=== PATIENT | male | born 1930 | race Caucasian/White ===

== ENCOUNTER 2018-12-14 12:25 | Emergency (ER) | payer MEDICARE, OTHER ==
--- NOTE | 2018-12-14 13:50 | Diagnostic Imaging Report ---
KRISTI HAWKINS [facility] [address] [facility] [address] [place], [place]. [address] Report Submission Date: Dec 14, 2018 1:32:53 PM CDT Patient Study Name: RICHARD PADGETT Date: Dec 14, 2018 1:06:28 PM CDT Modality Type: CT\SR Gender: M Description: CT BRAIN W/O CONTRAST : [birth year] Institution: [facility] Physician: KRISTI HAWKINS CT brain without IV contrast Clinical history: History of fall No visible skull fractures. Mastoid air cells and visible sinuses are clear. Moderate cortical atrophy. No bleeding or acute intracranial abnormalities. No midline shift or hydrocephalus. No visible tumor mass. Impression: Moderate cortical atrophy. No bleeding or acute intracranial abnormalities. Electronically signed on Dec 14, 2018 1:32:53 PM CDT by: John PERALTA
[2018-12-14 14:11] VITALS: BP 132/80
--- NOTE | 2018-12-14 19:16 | ED Physician Documentation ---
Fall - HISTORIAN Historian: patient, spouse, child - HPI Stated Complaint: fall coming out of bathroom Chief Complaint: Fall Additional Information: pt amb [place] when fell w/ lac lt eyebrow and bridge nose Onset: just prior to arrival Where: home Context: lost balance r: mild Associated Symptoms:: no loss of consciousness (unsure snrse reported finding him back in room) Location of Pain/Injury: face Injury to Right Extremity: none Injury to Left Extremity: none - ROS CONST: no problems NEURO: denies: dizziness, anxiety, depression MS/SKIN/LYMPH: denies: weakness, numbness, neck pain, back pain, ankle swelling EYES/ENT: denies: problems with vision CVS/RESP: none - PAST HX Past History: other (CHF DEMENTIA GERD) Allergies/Adverse Reactions: Allergies Allergy/AdvReac Type Severity Reaction Status Date / Time No Known Allergies Allergy Verified 12/14/18 12:44 Home Medications: Ambulatory Orders Medication Instructions Recorded Carvedilol [Coreg] 3.125 mg PO BS 12/14/18 Omeprazole 40 mg PO DAILY 12/14/18 Polyethylene Glycol 3350 [Miralax] 17 gm PO 1100 12/14/18 QUEtiapine FUMARATE [Seroquel] 0.5 tab PO DAILY 12/14/18 Quetiapine Fumarate [Seroquel] 50 mg PO HS 12/14/18 Warfarin Sodium 2 mg PO DAILY 12/14/18 Warfarin Sodium [Coumadin] 2.5 mg PO TUTH18 12/14/18 - SOCIAL HX Smoking History: non-smoker Alcohol Use: none Drug Use: none - FAMILY HX Family History: no significant history - VITAL SIGNS Vital Signs: Vital Signs Temp Pulse Resp BP Pulse Ox 97.0 F L 82 19 132/80 78 L 12/14/18 14:06 12/14/18 14:06 12/14/18 14:06 12/14/18 14:06 12/14/18 14:06 - REVIEWED ASSESSMENTS Nursing Assessment Reviewed: Yes Vitals Reviewed: Yes Procedures Wound Location: face Wound Length: 1.5 CM LAC TO INNER LT EYEBROW - 0.7 V-SHAPED SUPERFICAL TO NOSE Wound Explored: no foreign body removed Betadine Prep?: Yes (EXP WOUND TO BASE-NO F.B.) Wound Repaired With: steri-strips, Dermabond Layer Closure?: No Sterile Dressing Applied?: Yes ED Results Lab/Radiology - Orders Orders: ED Orders Category Date Time Status Apply Steri-Strips 1T Care 12/14/18 13:46 Active Skin Adhesive NOW Care 12/14/18 14:[address] BRAIN W/O CONTRAST Stat Exams 12/14/18 Completed Fall Physical Exam - Physical Exam General Appearance: alert, mild distress Head: no swelling, trauma ( W/CC) Neck: non-tender, painless ROM, trachea midline Eye: MARLENA, EOMI Resp/CVS: chest non-tender, no ecchymosis, breath sounds nml, no resp. distress, heart sounds nml. No: rib tenderness, rib palpable fracture, decreased breath sounds Abdomen: soft, non-tender Neuro: oriented x3, other (ALERT BUT ANXIOUS RE REPAIR-SALLY HELPED CALM THE PT- HELD HIS HAND) Skin: color nml, no rash Extremities: atraumatic, pelvis stable, hips non-tender, no pedal edema Joint: joints nml, nml ROM, Nml gait/weight bearing (AMBW/ ASST TO ROOM- SAYS NO CHG FROM USUAL) - Heath Coma Score Eyes Open: Spontaneous Speech: Oriented Discharge Clincal Impression: FALL IN ALF HALLWAY, LAC REPAIR NOSE AND LT EYEBROW Referrals: Primary Doctor,No [Primary Care Provider] - 2 Days Decision to Admit: NO Decision Time: 20:01
[2018-12-14] MEDS ORDERED: AMOXICILLIN 500 MG CAPSULE PO ONE (19:34)
== END 2018-12-14 14:08 ==
LOC: ED 12:25
DX: S01.112A Laceration without foreign body of left eyelid and periocular area, initial encounter (principal); S01.21XA Laceration without foreign body of nose, initial encounter; W01.0XXA Fall on same level from slipping, tripping and stumbling without subsequent striking against object, initial encounter; Y92.128 Other place in nursing home as the place of occurrence of the external cause
CPT/HCPCS: 12011; 70450; 99282; 99283